=== PATIENT | male | born 1970 | race Caucasian/White ===

== ENCOUNTER 2021-10-26 11:57 | Emergency (ER) | payer OTHER ==
[~2021-10-26] VITALS: Ht 195.6 cm; Wt 111.0 kg
[2021-10-26 12:04] VITALS: BP 153/89
== END 2021-10-26 14:45 | disposition left against medical advice (07) ==
LOC: ER 11:57
DX: Z53.21 Procedure and treatment not carried out due to patient leaving prior to being seen by health care provider (principal)